=== PATIENT | female | born 1950 | race Two or more races ===

== ENCOUNTER 2022-10-08 15:02 | Inpatient (IN) | payer MEDICARE, OTHER ==
[~2022-10-08] VITALS: Ht 157.5 cm; Wt 102.9 kg
[2022-10-08] MEDS ORDERED: SODIUM CHLORIDE 0.9% 1,000 ML IVB ONE (15:15)
[2022-10-08 16:12] LABS: INR 1.22 (0.9-1.15); Partial Thromboplastin Time 38.9 sec (24.6-33.4)
[2022-10-08 16:15] LABS: Albumin 1.6 g/dL (3.4-5.0); Calcium 7.6 mg/dL (8.5-10.1); Magnesium 2.4 mg/dL (1.6-2.6); Potassium 5.3 mmol/L (3.5-5.1)
[2022-10-08 16:17] LABS: Bilirubin, Total 1.6 mg/dL (0.2-1.0); Lactic Acid w/Reflex 2.4 mmol/L (0.4-2.0)
[2022-10-08] MEDS ORDERED: InsuLIN REG 1unit/0.01ml Soln (100units/ml) IV ONE (17:30)
[2022-10-08] MEDS ORDERED: MORPHINE SULFATE INJ 2 MG/ml SYRG IV PRN (19:15)
[2022-10-08] MEDS ORDERED: INSULIN LANTUS (GLARGINE) 1 /0.01ml (100units/ml) SC ONE (19:15)
[2022-10-08] MEDS ORDERED: DEXTROSE (50%) 50ML SYRG IV PRN (19:15)
[2022-10-08] MEDS ORDERED: FUROSEMIDE 100 MG/10ML VIAL IV ONE (19:15)
[2022-10-08] MEDS ORDERED: NITROGLYCERIN 0.4 MG SL TAB SL PRN (19:15)
[2022-10-08] MEDS ORDERED: CEFEPIME 1GM/ 50ML 50 ML IV ONE ×2 (19:15→19:45)
[2022-10-08] MEDS ORDERED: VANCOMYCIN PER PHARMACY 0 MG IV SCH (19:15)
[2022-10-08] MEDS ORDERED: PANTOPRAZOLE 40 MG/10 ML VIAL INJ IV ONE (19:30)
[2022-10-08] MEDS: ACCU-CHEK COMFORT CURVE STRIP VI SCH ×3 (20:30→22:50)
[2022-10-08] MEDS: NOREPINEPHRINE 8 MG/250ML KIT 250 ML IV SCH (21:12)
[2022-10-08] MEDS: InsuLIN R (HUMAN) 100 UNITS in SODIUM CHL 0.9% 99 ML IV SCH (21:19)
[2022-10-08] MEDS ORDERED: hydrALAZINE HCL 20 MG/ML VL IV ONE (21:45)
[2022-10-08 22:04] LABS: Hemoglobin 7.7 g/dL (12.2-16.2); Mean Corpuscular Hemoglobin 30.6 pg (28.0-32.0); White Blood Cell 14.9 10^3/uL (4.4-10.8)
[2022-10-08 22:06] LABS: Hematocrit 24.5 % (36.0-46.0); Mean Corpuscular Hgb Conc. 31.4 g/dL (32.0-36.0); Mean Corpuscular Volume 97.5 fL (80.0-100.0); Red Blood Cells 2.52 10^6/uL (4.0-5.20)
[2022-10-08 22:08] LABS: Red Cell Distribution Width 24.4 % (11.8-14.3)
[2022-10-08 22:10] LABS: Basophils % (manual) 0 (0.0-2.0); Blast Cells 0; Eosinophils % (manual) 0 (0-7); Metamyelocytes % 0; Myelocytes % 0; Promyelocytes % 0; Reactive Lymphocytes 0
[2022-10-08 22:30] LABS: Band Neutrophils % (manual) 1; Lymphocytes % (manual) 20 (10.0-50.0); Monocytes % (manual) 6 (0-12)
[2022-10-08] MEDS ORDERED: VANCOMYCIN 1GM/250ML 250 ML IV ONE (23:00)
[2022-10-09] VITALS (87 sets, daily range): BP systolic 66–144; BP diastolic 24–72
[2022-10-09] MEDS: ACCU-CHEK COMFORT CURVE STRIP VI SCH ×16 (00:04→22:48)
[2022-10-09] MEDS: HEPARIN SODIUM (PORCINE) 5000 UNITS/ML 1ML VIAL SC SCH ×2 (00:14→11:13)
[2022-10-09 02:09] LABS: Urine Bacteria FEW /hpf (None Seen); Urine Blood 3+ /uL (Negative); Urine Mucus FEW (None Seen); Urine Specific Gravity 1.017 (1.001-1.035); Urine WBC 2436 /hpf (0 - 5); Urine WBC Clumps PRESENT /hpf (None Seen)
[2022-10-09 02:19] LABS: Alcohol, Urine < 3.0 mg/dL (0-10); Amphetamine Screen, Urine NEGATIVE (NEGATIVE); Barbiturate Scree,Urine NEGATIVE (NEGATIVE); Benzodiazephine Screen, Urine NEGATIVE (NEGATIVE); Cannabinoid Screen, Urine NEGATIVE (NEGATIVE); Cocaine Screen, Urine NEGATIVE (NEGATIVE); Opiate Scree,Urine NEGATIVE (NEGATIVE); Phencyclidine Screen, Urine NEGATIVE (NEGATIVE)
[2022-10-09 03:02] LABS: BUN/Creatinine Ratio 28.4 (10.0-20.0); Calcium 7.8 mg/dL (8.5-10.1); Potassium 4.2 mmol/L (3.5-5.1)
[2022-10-09] MEDS: NOREPINEPHRINE 8 MG/250ML KIT 250 ML IV SCH ×3 (04:12→16:37)
[2022-10-09] MEDS: FUROSEMIDE 40 MG/4 ML VIAL IV SCH ×2 (05:34→17:35)
[2022-10-09] MEDS ORDERED: SOD CHL 0.45% 1,000 ML IV SCH (08:30)
[2022-10-09 08:43] LABS: Albumin 1.6 g/dL (3.4-5.0); Calcium 7.9 mg/dL (8.5-10.1); Potassium 4.2 mmol/L (3.5-5.1)
[2022-10-09 08:46] LABS: BUN/Creatinine Ratio 26.8 (10.0-20.0); Bilirubin, Total 1.4 mg/dL (0.2-1.0); Total Protein 5.4 g/dL (6.4-8.2)
[2022-10-09] MEDS: VASOPRESSIN 20 UNITS in SODIUM CHL 0.9% 99 ML IV SCH ×2 (09:15→20:22)
[2022-10-09] MEDS ORDERED: PANTOPRAZOLE 40 MG/10 ML VIAL INJ IV SCH (10:00)
[2022-10-09] MEDS: CEFEPIME 1GM/ 50ML 50 ML IV SCH ×2 (10:31→12:52)
[2022-10-09] MEDS: LINEZOLID 600MG/300ML 300 ML IV SCH ×2 (10:44→21:41)
[2022-10-09] MEDS: INSULIN LANTUS (GLARGINE) 1 /0.01ml (100units/ml) SC SCH (10:49)
[2022-10-09 11:33] LABS: Protein, Urine 137.2 mg/dL (0.0-11.9)
[2022-10-09 14:40] LABS: BUN/Creatinine Ratio 27.2 (10.0-20.0); Calcium 7.9 mg/dL (8.5-10.1); Potassium 4.4 mmol/L (3.5-5.1)
[2022-10-09] MEDS: LACTULOSE 20Gm/30ML SOLN PO SCH ×2 (17:34→21:40)
[2022-10-09] MEDS: ACETAMINOPHEN 325 MG TAB PO PRN (17:34)
[2022-10-09] MEDS: PANTOPRAZOLE 40mg/50ML NS AE 50 ML IV SCH ×2 (17:36→21:41)
[2022-10-09] MEDS: InsuLIN R (HUMAN) 100 UNITS in SODIUM CHL 0.9% 99 ML IV SCH (19:15)
[2022-10-09 20:30] LABS: BUN/Creatinine Ratio 26.4 (10.0-20.0); Calcium 7.8 mg/dL (8.5-10.1); Potassium 4.3 mmol/L (3.5-5.1)
[2022-10-09] MEDS: BACITRACIN TOP OINT 1 UD PKG TOP SCH (21:41)
[2022-10-10] VITALS (47 sets, daily range): BP systolic 68–150; BP diastolic 35–85
[2022-10-10] MEDS: NOREPINEPHRINE 8 MG/250ML KIT 250 ML IV SCH ×4 (00:45→22:32)
[2022-10-10 00:53] LABS: Calcium 7.8 mg/dL (8.5-10.1); Potassium 4.1 mmol/L (3.5-5.1)
[2022-10-10] MEDS: ACCU-CHEK COMFORT CURVE STRIP VI SCH ×8 (01:37→23:50)
[2022-10-10] MEDS: LACTULOSE 20Gm/30ML SOLN PO SCH ×6 (02:06→21:53)
[2022-10-10] MEDS: ACETAMINOPHEN 325 MG TAB PO PRN ×2 (02:08→14:11)
[2022-10-10] MEDS: PANTOPRAZOLE 40mg/50ML NS AE 50 ML IV SCH ×5 (03:18→20:36)
[2022-10-10 04:04] LABS: Hematocrit 26.7 % (36.0-46.0); Hemoglobin 8.7 g/dL (12.2-16.2); Mean Corpuscular Hgb Conc. 32.6 g/dL (32.0-36.0); Mean Corpuscular Volume 95.1 fL (80.0-100.0); Red Blood Cells 2.81 10^6/uL (4.0-5.20); White Blood Cell 21.7 10^3/uL (4.4-10.8)
[2022-10-10 04:05] LABS: % Iron Saturation 44.1 % (15-50)
[2022-10-10 04:06] LABS: Albumin 1.5 g/dL (3.4-5.0); Calcium 7.8 mg/dL (8.5-10.1); Potassium 4.1 mmol/L (3.5-5.1); Uric Acid 12.3 mg/dL (2.6-6.0)
[2022-10-10 04:09] LABS: BUN/Creatinine Ratio 25.4 (10.0-20.0); Bilirubin, Total 1.2 mg/dL (0.2-1.0); Phosphorus 4.7 mg/dL (2.5-4.90)
[2022-10-10 04:16] LABS: Red Cell Distribution Width 24.5 % (11.8-14.3)
[2022-10-10 04:18] LABS: Basophils % (manual) 0 (0.0-2.0); Blast Cells 0; Eosinophils % (manual) 0 (0-7); Myelocytes % 0; Promyelocytes % 0; Reactive Lymphocytes 0
[2022-10-10 05:01] LABS: INR 1.33 (0.9-1.15); Partial Thromboplastin Time 41.3 sec (24.6-33.4)
[2022-10-10] MEDS: FUROSEMIDE 40 MG/4 ML VIAL IV SCH ×2 (06:26→17:48)
[2022-10-10] MEDS ORDERED: DEXTROSE (50%) 50ML SYRG IV PRN (07:00)
[2022-10-10 07:28] LABS: Band Neutrophils % (manual) 3; Lymphocytes % (manual) 26 (10.0-50.0); Metamyelocytes % 1; Monocytes % (manual) 2 (0-12)
[2022-10-10] MEDS: VASOPRESSIN 20 UNITS in SODIUM CHL 0.9% 99 ML IV SCH ×2 (07:29→18:30)
[2022-10-10] MEDS: LINEZOLID 600MG/300ML 300 ML IV SCH ×2 (09:48→21:53)
[2022-10-10] MEDS: BACITRACIN TOP OINT 1 UD PKG TOP SCH ×2 (09:49→21:54)
[2022-10-10] MEDS: HYDROCORTISONE SOD SUCC 100 MG/2ML INJ VIAL IV SCH ×2 (10:00→22:00)
[2022-10-10] MEDS: INSULIN LANTUS (GLARGINE) 1 /0.01ml (100units/ml) SC SCH (10:15)
[2022-10-10] MEDS ORDERED: SODIUM CHLORIDE 0.9% 2,000 ML IV ONE (11:00)
[2022-10-10] MEDS: InsuLIN REG 1unit/0.01ml Soln (100units/ml) SC SCH ×3 (12:18→23:57)
[2022-10-10 13:36] LABS: BUN/Creatinine Ratio 25.5 (10.0-20.0); Calcium 7.7 mg/dL (8.5-10.1)
[2022-10-10] MEDS: metroNIDAZOLE 500MG/100ML 100 ML IV SCH ×2 (14:45→21:53)
[2022-10-10] MEDS: CEFEPIME 1GM/ 50ML 50 ML IV SCH (15:41)
[2022-10-10] MEDS ORDERED: SODIUM BICARBONATE 8.4 % INJ 50ML VIAL IV ONE (16:30)
[2022-10-10 18:42] LABS: BUN/Creatinine Ratio 23.6 (10.0-20.0); Calcium 7.5 mg/dL (8.5-10.1); Potassium 3.4 mmol/L (3.5-5.1)
[2022-10-10] MEDS: POTASSIUM CHL 20MEQ/100ML 100 ML IV SCH ×2 (20:19→21:52)
[2022-10-11] VITALS (88 sets, daily range): BP systolic 79–126; BP diastolic 45–73
[2022-10-11] MEDS: LACTULOSE 20Gm/30ML SOLN PO SCH ×2 (01:31→05:43)
[2022-10-11] MEDS: PANTOPRAZOLE 40mg/50ML NS AE 50 ML IV SCH ×4 (03:14→20:01)
[2022-10-11 04:51] LABS: BUN/Creatinine Ratio 23.8 (10.0-20.0); Calcium 7.4 mg/dL (8.5-10.1)
[2022-10-11] MEDS: VASOPRESSIN 20 UNITS in SODIUM CHL 0.9% 99 ML IV SCH ×2 (05:43→16:50)
[2022-10-11] MEDS: ACCU-CHEK COMFORT CURVE STRIP VI SCH ×4 (05:48→23:53)
[2022-10-11] MEDS: InsuLIN REG 1unit/0.01ml Soln (100units/ml) SC SCH ×4 (05:49→23:54)
[2022-10-11] MEDS: metroNIDAZOLE 500MG/100ML 100 ML IV SCH ×3 (05:51→21:45)
[2022-10-11] MEDS: FUROSEMIDE 40 MG/4 ML VIAL IV SCH ×2 (05:52→17:11)
[2022-10-11] MEDS ORDERED: SODIUM BICARBONATE 50ML VIAL 150 ML in D5W 5% 1,000 ML IV ONE (09:00)
[2022-10-11 09:16] LABS: Hematocrit 22.3 % (36.0-46.0); Hemoglobin 7.3 g/dL (12.2-16.2); Mean Corpuscular Hgb Conc. 32.8 g/dL (32.0-36.0)
[2022-10-11 09:19] LABS: Mean Corpuscular Hemoglobin 31.7 pg (28.0-32.0); Mean Corpuscular Volume 96.8 fL (80.0-100.0); White Blood Cell 10.4 10^3/uL (4.4-10.8)
[2022-10-11 09:31] LABS: Red Cell Distribution Width 24.7 % (11.8-14.3)
[2022-10-11 09:40] LABS: Basophils % (manual) 0 (0.0-2.0); Blast Cells 0; Eosinophils % (manual) 0 (0-7); Metamyelocytes % 0; Monocytes % (manual) 0 (0-12); Myelocytes % 0; Promyelocytes % 0; Reactive Lymphocytes 0
[2022-10-11] MEDS: HYDROCORTISONE SOD SUCC 100 MG/2ML INJ VIAL IV SCH ×2 (10:00→22:47)
[2022-10-11] MEDS: BACITRACIN TOP OINT 1 UD PKG TOP SCH ×2 (10:11→21:46)
[2022-10-11] MEDS: CEFEPIME 1GM/ 50ML 50 ML IV SCH (10:11)
[2022-10-11] MEDS: LINEZOLID 600MG/300ML 300 ML IV SCH ×2 (10:12→21:47)
[2022-10-11 12:45] LABS: Band Neutrophils % (manual) 2; Lymphocytes % (manual) 15 (10.0-50.0)
[2022-10-11] MEDS: NOREPINEPHRINE 8 MG/250ML KIT 250 ML IV SCH ×2 (14:43→16:40)
[2022-10-11 19:55] LABS: Hepatitis A Ab IgM Negative; Hepatitis B Core IgM Negative; Hepatitis C Antibody Negative (Negative)
[2022-10-12] VITALS (101 sets, daily range): BP systolic 80–132; BP diastolic 5–69
[2022-10-12] MEDS: NOREPINEPHRINE 8 MG/250ML KIT 250 ML IV SCH ×2 (02:03→11:35)
[2022-10-12] MEDS: PANTOPRAZOLE 40mg/50ML NS AE 50 ML IV SCH ×6 (03:26→23:49)
[2022-10-12] MEDS: VASOPRESSIN 20 UNITS in SODIUM CHL 0.9% 99 ML IV SCH ×2 (03:57→15:04)
[2022-10-12 04:30] LABS: Hematocrit 18.7 % (36.0-46.0); Mean Corpuscular Hemoglobin 32.2 pg (28.0-32.0); Mean Corpuscular Hgb Conc. 33.7 g/dL (32.0-36.0); Mean Corpuscular Volume 95.6 fL (80.0-100.0); Red Blood Cells 1.96 10^6/uL (4.0-5.20); White Blood Cell 9.7 10^3/uL (4.4-10.8)
[2022-10-12 04:44] LABS: Calcium 7.2 mg/dL (8.5-10.1); Potassium 3.7 mmol/L (3.5-5.1)
[2022-10-12 04:48] LABS: Red Cell Distribution Width 25.3 % (11.8-14.3)
[2022-10-12 04:49] LABS: Albumin 1.3 g/dL (3.4-5.0); BUN/Creatinine Ratio 23.5 (10.0-20.0); Bilirubin, Total 1.1 mg/dL (0.2-1.0); Hemoglobin 6.3 g/dL (12.2-16.2); Total Protein 3.8 g/dL (6.4-8.2)
[2022-10-12 04:51] LABS: Basophils % (manual) 0 (0.0-2.0); Blast Cells 0; Eosinophils % (manual) 0 (0-7); Metamyelocytes % 0; Myelocytes % 0; Promyelocytes % 0; Reactive Lymphocytes 0
[2022-10-12 05:07] LABS: RPR Non Reactive (Non Reactive)
[2022-10-12] MEDS: FUROSEMIDE 40 MG/4 ML VIAL IV SCH (05:24)
[2022-10-12] MEDS: metroNIDAZOLE 500MG/100ML 100 ML IV SCH ×3 (05:25→22:36)
[2022-10-12] MEDS: ACCU-CHEK COMFORT CURVE STRIP VI SCH ×4 (05:32→23:14)
[2022-10-12] MEDS: InsuLIN REG 1unit/0.01ml Soln (100units/ml) SC SCH ×4 (05:33→23:14)
[2022-10-12 07:06] LABS: Immunoglobulin G, Serum 1413 mg/dL (586-1602)
[2022-10-12 08:02] LABS: Band Neutrophils % (manual) 1; Lymphocytes % (manual) 16 (10.0-50.0); Monocytes % (manual) 2 (0-12)
[2022-10-12] MEDS: LINEZOLID 600MG/300ML 300 ML IV SCH ×2 (10:25→23:15)
[2022-10-12] MEDS: BACITRACIN TOP OINT 1 UD PKG TOP SCH ×2 (10:31→22:36)
[2022-10-12] MEDS: CEFEPIME 1GM/ 50ML 50 ML IV SCH (11:31)
[2022-10-12] MEDS: BUMETANIDE INJECTION 25 MG in GIVE UN-DILUTED 0 ML IV SCH (14:48)
[2022-10-12 20:31] LABS: White Blood Cell 6.6 10^3/uL (4.4-10.8)
[2022-10-12 20:32] LABS: Hematocrit 23.6 % (36.0-46.0); Hemoglobin 8.3 g/dL (12.2-16.2); Mean Corpuscular Hemoglobin 30.6 pg (28.0-32.0); Mean Corpuscular Volume 87.6 fL (80.0-100.0); Red Cell Distribution Width 16.1 % (11.8-14.3)
[2022-10-12 20:36] LABS: Band Neutrophils % (manual) 0; Basophils % (manual) 0 (0.0-2.0); Blast Cells 0; Eosinophils % (manual) 0 (0-7); Metamyelocytes % 0; Myelocytes % 0; Promyelocytes % 0; Reactive Lymphocytes 0
[2022-10-12 21:56] LABS: Lymphocytes % (manual) 23 (10.0-50.0); Monocytes % (manual) 5 (0-12)
[2022-10-13] VITALS (94 sets, daily range): BP systolic 80–121; BP diastolic 43–71
[2022-10-13] MEDS: VASOPRESSIN 20 UNITS in SODIUM CHL 0.9% 99 ML IV SCH ×2 (02:11→12:08)
[2022-10-13] MEDS: NOREPINEPHRINE 8 MG/250ML KIT 250 ML IV SCH ×2 (03:13→15:13)
[2022-10-13 04:54] LABS: Hematocrit 26.1 % (36.0-46.0); Hemoglobin 9.1 g/dL (12.2-16.2); Mean Corpuscular Hemoglobin 30.7 pg (28.0-32.0); Mean Corpuscular Hgb Conc. 34.7 g/dL (32.0-36.0); Mean Corpuscular Volume 88.4 fL (80.0-100.0); Red Blood Cells 2.95 10^6/uL (4.0-5.20); Red Cell Distribution Width 16.1 % (11.8-14.3); White Blood Cell 7.3 10^3/uL (4.4-10.8)
[2022-10-13 04:55] LABS: Basophils % (manual) 0 (0.0-2.0); Blast Cells 0; Eosinophils % (manual) 0 (0-7); Metamyelocytes % 0; Myelocytes % 0; Promyelocytes % 0; Reactive Lymphocytes 0
[2022-10-13 05:11] LABS: BUN/Creatinine Ratio 21.1 (10.0-20.0); Calcium 7.6 mg/dL (8.5-10.1); Potassium 3.7 mmol/L (3.5-5.1)
[2022-10-13] MEDS: PANTOPRAZOLE 40mg/50ML NS AE 50 ML IV SCH (05:16)
[2022-10-13] MEDS: ACCU-CHEK COMFORT CURVE STRIP VI SCH ×3 (05:42→18:26)
[2022-10-13] MEDS: metroNIDAZOLE 500MG/100ML 100 ML IV SCH ×3 (05:42→21:50)
[2022-10-13] MEDS: InsuLIN REG 1unit/0.01ml Soln (100units/ml) SC SCH ×3 (05:51→18:27)
[2022-10-13] MEDS ORDERED: TPN PER PHARMACY 0 ML IV SCH (07:00)
[2022-10-13 07:27] LABS: Band Neutrophils % (manual) 1; Lymphocytes % (manual) 20 (10.0-50.0); Monocytes % (manual) 3 (0-12)
[2022-10-13 07:52] LABS: Albumin 1.9 g/dL (3.4-5.0); Magnesium 1.7 mg/dL (1.6-2.6)
[2022-10-13 07:59] LABS: Bilirubin, Direct 1.3 mg/dL (0-0.2); Bilirubin, Total 1.8 mg/dL (0.2-1.0); Phosphorus 4.6 mg/dL (2.5-4.90); Total Protein 4.6 g/dL (6.4-8.2)
[2022-10-13] MEDS: BACITRACIN TOP OINT 1 UD PKG TOP SCH ×2 (10:47→21:50)
[2022-10-13] MEDS: CEFEPIME 1GM/ 50ML 50 ML IV SCH (10:47)
[2022-10-13] MEDS: BUMETANIDE INJECTION 25 MG in GIVE UN-DILUTED 0 ML IV SCH (12:05)
[2022-10-13] MEDS ORDERED: MORPHINE SULFATE INJ 2 MG/ml SYRG IV PRN (13:45)
[2022-10-13] MEDS ORDERED: MORPHINE SULFATE INJ 2 MG/ml SYRG IV ONE (13:45)
[2022-10-13] MEDS ORDERED: SULFAMETH-TRIMETH 80/16MG-ML 20 ML in D5W 5% 500 ML IV SCH (17:00)
[2022-10-13] MEDS ORDERED: TPN PER PHARMACY IV NR ×9 (20:00)
[2022-10-14] VITALS (92 sets, daily range): BP systolic 87–133; BP diastolic 47–69
[2022-10-14] MEDS: ACCU-CHEK COMFORT CURVE STRIP VI SCH ×5 (00:08→23:57)
[2022-10-14] MEDS: InsuLIN REG 1unit/0.01ml Soln (100units/ml) SC SCH ×4 (00:09→17:46)
[2022-10-14] MEDS: VASOPRESSIN 20 UNITS in SODIUM CHL 0.9% 99 ML IV SCH ×3 (00:25→22:39)
[2022-10-14] MEDS: NOREPINEPHRINE 8 MG/250ML KIT 250 ML IV SCH ×2 (03:24→18:13)
[2022-10-14] MEDS: metroNIDAZOLE 500MG/100ML 100 ML IV SCH ×3 (06:15→22:18)
[2022-10-14] MEDS ORDERED: SODIUM CHL 0.9% 1000 ML BAG XX ONE (07:00)
[2022-10-14 08:32] LABS: Hemoglobin 8.8 g/dL (12.2-16.2); White Blood Cell 4.3 10^3/uL (4.4-10.8)
[2022-10-14 08:34] LABS: Hematocrit 25.3 % (36.0-46.0); Mean Corpuscular Hemoglobin 30.6 pg (28.0-32.0); Mean Corpuscular Hgb Conc. 34.8 g/dL (32.0-36.0); Mean Corpuscular Volume 88.1 fL (80.0-100.0); Red Blood Cells 2.88 10^6/uL (4.0-5.20)
[2022-10-14 08:37] LABS: Basophils % (manual) 0 (0.0-2.0); Blast Cells 0; Eosinophils % (manual) 0 (0-7); Metamyelocytes % 0; Myelocytes % 0; Promyelocytes % 0; Reactive Lymphocytes 0
[2022-10-14] MEDS ORDERED: ALBUMIN 25% 100 ML IV ONE (08:45)
[2022-10-14 08:50] LABS: INR 1.71 (0.9-1.15); Partial Thromboplastin Time 52.8 sec (24.6-33.4)
[2022-10-14 08:53] LABS: Band Neutrophils % (manual) 3; Lymphocytes % (manual) 25 (10.0-50.0); Monocytes % (manual) 3 (0-12)
[2022-10-14 08:55] LABS: Albumin 1.2 g/dL (3.4-5.0); Anion Gap 13 (5-15); Blood Urea Nitrogen 73 mg/dL (7-18); Calcium 7.3 mg/dL (8.5-10.1); Carbon Dioxide 17 mmol/L (21-32); Chloride 105 mmol/L (98-107); Glucose 206 mg/dL (74-106); Magnesium 1.8 mg/dL (1.6-2.6); Sodium 135 mmol/L (136-145)
[2022-10-14 08:58] LABS: Alanine Aminotransferase 42 U/L (13-56); Alkaline Phosphatase 242 U/L (45-117); Aspartate Aminotransferase 31 U/L (15-37); BUN/Creatinine Ratio 20.3 (10.0-20.0); Bilirubin, Total 1.5 mg/dL (0.2-1.0); GFR African American 16 mL/min; GFR Non-African American 13 mL/min; Phosphorus 3.1 mg/dL (2.5-4.90); Total Protein 3.9 g/dL (6.4-8.2)
[2022-10-14] MEDS: POTASSIUM EFFERVESENT TAB 25 MEQ PO ONE ×2 (10:00→10:39)
[2022-10-14] MEDS: BACITRACIN TOP OINT 1 UD PKG TOP SCH ×2 (10:39→22:18)
[2022-10-14] MEDS: CEFEPIME 1GM/ 50ML 50 ML IV SCH (10:39)
[2022-10-14] MEDS: POTASSIUM CHL 20MEQ/100ML 100 ML IV SCH ×2 (10:48→11:56)
[2022-10-14] MEDS: BUMETANIDE INJECTION 25 MG in GIVE UN-DILUTED 0 ML IV SCH (14:15)
[2022-10-14] MEDS ORDERED: Nepro With Carb Steady 1 Liter Bottle GT SCH (15:00)
[2022-10-14 18:03] LABS: BUN/Creatinine Ratio 19.2 (10.0-20.0); Calcium 7.8 mg/dL (8.5-10.1); Potassium 3.9 mmol/L (3.5-5.1)
[2022-10-14] MEDS: TPN PER PHARMACY IV NR ×11 (19:43)
[2022-10-14] MEDS ORDERED: EPOETIN ALFA-EPBX 4,000 UNIT/ML VIAL SC ONE (21:00)
[2022-10-15] VITALS (82 sets, daily range): BP systolic 69–137; BP diastolic 46–72
[2022-10-15] MEDS: InsuLIN REG 1unit/0.01ml Soln (100units/ml) SC SCH ×4 (00:01→18:10)
[2022-10-15 04:13] LABS: Hemoglobin 8.9 g/dL (12.2-16.2)
[2022-10-15 04:16] LABS: Hematocrit 25.4 % (36.0-46.0); Mean Corpuscular Volume 88.6 fL (80.0-100.0); Red Blood Cells 2.86 10^6/uL (4.0-5.20); Red Cell Distribution Width 16.9 % (11.8-14.3); White Blood Cell 4.9 10^3/uL (4.4-10.8)
[2022-10-15 04:32] LABS: Calcium 7.7 mg/dL (8.5-10.1); Potassium 3.8 mmol/L (3.5-5.1)
[2022-10-15 04:34] LABS: Basophils % (manual) 0 (0.0-2.0); Blast Cells 0; Eosinophils % (manual) 0 (0-7); Metamyelocytes % 0; Promyelocytes % 0; Reactive Lymphocytes 0
[2022-10-15 04:39] LABS: Albumin 1.9 g/dL (3.4-5.0); Magnesium 1.7 mg/dL (1.6-2.6); Phosphorus 2.5 mg/dL (2.5-4.90); Total Protein 4.3 g/dL (6.4-8.2)
[2022-10-15] MEDS: metroNIDAZOLE 500MG/100ML 100 ML IV SCH ×3 (06:33→22:29)
[2022-10-15] MEDS: ACCU-CHEK COMFORT CURVE STRIP VI SCH ×3 (06:33→18:01)
[2022-10-15 08:17] LABS: Band Neutrophils % (manual) 1; Lymphocytes % (manual) 30 (10.0-50.0); Monocytes % (manual) 3 (0-12); Myelocytes % 2
[2022-10-15] MEDS: VASOPRESSIN 20 UNITS in SODIUM CHL 0.9% 99 ML IV SCH (09:43)
[2022-10-15] MEDS: CEFEPIME 1GM/ 50ML 50 ML IV SCH (09:44)
[2022-10-15] MEDS: BACITRACIN TOP OINT 1 UD PKG TOP SCH ×2 (09:44→22:30)
[2022-10-15] MEDS ORDERED: D5W 5% IV ONE (10:00)
[2022-10-15] MEDS ORDERED: TIGECYCLINE IV ONE (10:00)
[2022-10-15] MEDS: BUMETANIDE INJECTION 25 MG in GIVE UN-DILUTED 0 ML IV SCH (14:24)
[2022-10-15] MEDS ORDERED: MICAFUNGIN SODIUM 100 MG in SODIUM CHL 0.9% 100 ML IV ONE (16:45)
[2022-10-15] MEDS ORDERED: METOCLOPRAMIDE HCL 5MG/ml INJ 2ml VIAL IV ONE (16:45)
[2022-10-15] MEDS ORDERED: PANTOPRAZOLE 40 MG/10 ML VIAL INJ IV ONE (16:45)
[2022-10-15] MEDS: TPN PER PHARMACY IV NR ×11 (19:45)
[2022-10-15] MEDS ORDERED: TPN PER PHARMACY IV NR ×10 (20:00)
[2022-10-15] MEDS: TIGECYCLINE IV SCH (22:29)
[2022-10-15] MEDS: METOCLOPRAMIDE HCL 5MG/ml INJ 2ml VIAL IV SCH (22:29)
[2022-10-15] MEDS: NOREPINEPHRINE 8 MG/250ML KIT 250 ML IV SCH (22:29)
[2022-10-15] MEDS: D5W 5% IV SCH (22:29)
[2022-10-16] VITALS (90 sets, daily range): BP systolic 82–129; BP diastolic 37–72
[2022-10-16] MEDS: ACCU-CHEK COMFORT CURVE STRIP VI SCH ×4 (00:20→18:17)
[2022-10-16] MEDS: InsuLIN REG 1unit/0.01ml Soln (100units/ml) SC SCH ×4 (00:39→18:23)
[2022-10-16 03:26] LABS: Albumin 1.5 g/dL (3.4-5.0); Calcium 7.8 mg/dL (8.5-10.1); Magnesium 1.9 mg/dL (1.6-2.6)
[2022-10-16 03:30] LABS: BUN/Creatinine Ratio 22.2 (10.0-20.0); Bilirubin, Total 1.6 mg/dL (0.2-1.0); Phosphorus 2.6 mg/dL (2.5-4.90); Total Protein 4.3 g/dL (6.4-8.2)
[2022-10-16 03:45] LABS: Hematocrit 27.5 % (36.0-46.0); Hemoglobin 9.6 g/dL (12.2-16.2); White Blood Cell 7.3 10^3/uL (4.4-10.8)
[2022-10-16 03:48] LABS: Mean Corpuscular Hemoglobin 31.4 pg (28.0-32.0); Mean Corpuscular Hgb Conc. 34.9 g/dL (32.0-36.0); Mean Corpuscular Volume 89.9 fL (80.0-100.0); Red Blood Cells 3.05 10^6/uL (4.0-5.20); Red Cell Distribution Width 16.9 % (11.8-14.3)
[2022-10-16 04:57] LABS: Basophils % (manual) 0 (0.0-2.0); Blast Cells 0; Eosinophils % (manual) 0 (0-7); Metamyelocytes % 0; Myelocytes % 0; Promyelocytes % 0; Reactive Lymphocytes 0
[2022-10-16] MEDS: METOCLOPRAMIDE HCL 5MG/ml INJ 2ml VIAL IV SCH ×3 (05:50→22:19)
[2022-10-16] MEDS: metroNIDAZOLE 500MG/100ML 100 ML IV SCH ×3 (05:50→22:19)
[2022-10-16] MEDS: VASOPRESSIN 20 UNITS in SODIUM CHL 0.9% 99 ML IV SCH ×3 (08:00→19:07)
[2022-10-16 08:13] LABS: Band Neutrophils % (manual) 15; Lymphocytes % (manual) 20 (10.0-50.0); Monocytes % (manual) 2 (0-12)
[2022-10-16] MEDS: BACITRACIN TOP OINT 1 UD PKG TOP SCH ×2 (08:31→22:00)
[2022-10-16] MEDS: MICAFUNGIN SODIUM 100 MG in SODIUM CHL 0.9% 100 ML IV SCH (08:31)
[2022-10-16] MEDS ORDERED: PANTOPRAZOLE 40 MG/10 ML VIAL INJ IV SCH (10:00)
[2022-10-16] MEDS: BUMETANIDE INJECTION 25 MG in GIVE UN-DILUTED 0 ML IV SCH (10:34)
[2022-10-16] MEDS: TIGECYCLINE IV SCH ×2 (11:40→22:23)
[2022-10-16] MEDS: D5W 5% IV SCH ×2 (11:40→22:23)
[2022-10-16] MEDS ORDERED: ALBUMIN 25% 100 ML IV ONE (12:45)
[2022-10-16] MEDS: NOREPINEPHRINE 8 MG/250ML KIT 250 ML IV SCH (19:15)
[2022-10-16] MEDS ORDERED: methylPREDNISolone SOD SUCC 125 MG/2 ML VL IV ONE (20:00)
[2022-10-16] MEDS ORDERED: TPN PER PHARMACY IV NR ×9 (20:00)
[2022-10-17] VITALS (88 sets, daily range): BP systolic 84–151; BP diastolic 47–80
[2022-10-17] MEDS: ACCU-CHEK COMFORT CURVE STRIP VI SCH ×4 (00:24→18:11)
[2022-10-17] MEDS: InsuLIN REG 1unit/0.01ml Soln (100units/ml) SC SCH ×4 (00:27→18:13)
[2022-10-17 04:15] LABS: INR 2.32 (0.9-1.15); Partial Thromboplastin Time 62.9 SEC (24.5-34.5); Potassium 4.5 mmol/L (3.5-5.1)
[2022-10-17 04:21] LABS: Basophils # (auto) 0 10 ^3/uL (0-0.2); Eosinophils # (auto) 0 10 ^3/uL (0-0.8); Lymphocytes # (auto) 0.8 10 ^3/uL (0.4-5.4); Monocytes # (auto) 0 10 ^3/uL (0-1.3); Monocytes % (auto) 0.4 % (0.0-12.0)
[2022-10-17 04:22] LABS: Albumin 2.2 g/dL (3.4-5.0); Basophils % (auto) 0.5 % (0.0-2.0); Bilirubin, Total 2.4 mg/dL (0.2-1.0); Calcium 7.7 mg/dL (8.5-10.1); Eosinophils % (auto) 0.1 % (0.0-7.0); Hematocrit 23.5 % (36.0-46.0); Hemoglobin 8.3 g/dL (12.2-16.2); Lymphocytes % (auto) 11.6 % (10.0-50.0); Magnesium 2.2 mg/dL (1.6-2.6); Mean Corpuscular Hemoglobin 31.3 pg (28.0-32.0); Mean Corpuscular Hgb Conc. 35.2 g/dL (32.0-36.0); Mean Corpuscular Volume 89.1 fL (80.0-100.0); Neutrophils # (auto) 6.3 10 ^3/uL (1.6-8.6); Neutrophils % (auto) 87.4 % (37.0-80.0); Nucleated Red Blood Cells % 0.5 %; Phosphorus 4.1 mg/dL (2.5-4.90); Red Blood Cells 2.63 10^6/uL (4.0-5.20); Red Cell Distribution Width 17.4 % (11.8-14.3); Total Protein 4.3 g/dL (6.4-8.2); White Blood Cell 7.2 10^3/uL (4.4-10.8)
[2022-10-17] MEDS: VASOPRESSIN 20 UNITS in SODIUM CHL 0.9% 99 ML IV SCH ×2 (06:14→17:21)
[2022-10-17] MEDS: metroNIDAZOLE 500MG/100ML 100 ML IV SCH ×3 (06:26→22:43)
[2022-10-17] MEDS: METOCLOPRAMIDE HCL 5MG/ml INJ 2ml VIAL IV SCH ×3 (06:26→22:44)
[2022-10-17] MEDS ORDERED: SODIUM CHL 0.9% 1000 ML BAG XX ONE (07:00)
[2022-10-17] MEDS ORDERED: ALBUMIN 25% 100 ML IV ONE ×2 (08:15)
[2022-10-17] MEDS: MICAFUNGIN SODIUM 100 MG in SODIUM CHL 0.9% 100 ML IV SCH (10:48)
[2022-10-17] MEDS: TIGECYCLINE IV SCH ×2 (10:48→22:45)
[2022-10-17] MEDS: D5W 5% IV SCH ×2 (10:48→22:45)
[2022-10-17] MEDS: BACITRACIN TOP OINT 1 UD PKG TOP SCH ×2 (10:50→22:00)
[2022-10-17] MEDS: NOREPINEPHRINE 8 MG/250ML KIT 250 ML IV SCH (11:21)
[2022-10-17] MEDS: FAMOTIDINE INJECTION 40 MG in SODIUM CHL 0.9% 100 ML IV SCH (11:21)
[2022-10-17] MEDS: BUMETANIDE INJECTION 25 MG in GIVE UN-DILUTED 0 ML IV SCH (14:00)
[2022-10-17] MEDS: methylPREDNISolone SOD SUCC 40 MG/ML VL IV SCH ×2 (14:18→22:44)
[2022-10-17] MEDS ORDERED: TPN PER PHARMACY IV NR ×10 (20:00)
[2022-10-17] MEDS ORDERED: EPOETIN ALFA-EPBX 4,000 UNIT/ML VIAL SC ONE (21:00)
[2022-10-18] VITALS (92 sets, daily range): BP systolic 84–136; BP diastolic 40–67
[2022-10-18 04:01] LABS: Potassium 4.2 mmol/L (3.5-5.1)
[2022-10-18 04:09] LABS: Albumin 2.8 g/dL (3.4-5.0); BUN/Creatinine Ratio 26.4 (10.0-20.0); Bilirubin, Total 3.8 mg/dL (0.2-1.0); Calcium 8.3 mg/dL (8.5-10.1); Magnesium 2.5 mg/dL (1.6-2.6); Phosphorus 4.4 mg/dL (2.5-4.90); Total Protein 4.1 g/dL (6.4-8.2)
[2022-10-18] MEDS: VASOPRESSIN 20 UNITS in SODIUM CHL 0.9% 99 ML IV SCH (04:28)
[2022-10-18] MEDS: metroNIDAZOLE 500MG/100ML 100 ML IV SCH ×3 (06:10→22:47)
[2022-10-18] MEDS: METOCLOPRAMIDE HCL 5MG/ml INJ 2ml VIAL IV SCH ×3 (06:11→22:47)
[2022-10-18] MEDS: ACCU-CHEK COMFORT CURVE STRIP VI SCH ×4 (06:11→17:41)
[2022-10-18] MEDS: methylPREDNISolone SOD SUCC 40 MG/ML VL IV SCH ×2 (06:14→14:11)
[2022-10-18] MEDS: InsuLIN REG 1unit/0.01ml Soln (100units/ml) SC SCH ×4 (06:27→18:00)
[2022-10-18 06:43] LABS: Basophils # (auto) 0 10 ^3/uL (0-0.2); Basophils % (auto) 0.2 % (0.0-2.0); Eosinophils # (auto) 0 10 ^3/uL (0-0.8); Hematocrit 17.7 % (36.0-46.0); Mean Corpuscular Hemoglobin 30.9 pg (28.0-32.0); Red Blood Cells 1.98 10^6/uL (4.0-5.20); White Blood Cell 7.7 10^3/uL (4.4-10.8)
[2022-10-18 06:45] LABS: Lymphocytes # (auto) 1.1 10 ^3/uL (0.4-5.4); Lymphocytes % (auto) 14.8 % (10.0-50.0); Mean Corpuscular Hgb Conc. 34.6 g/dL (32.0-36.0); Mean Corpuscular Volume 89.3 fL (80.0-100.0); Monocytes # (auto) 0 10 ^3/uL (0-1.3); Monocytes % (auto) 0.6 % (0.0-12.0); Neutrophils # (auto) 6.5 10 ^3/uL (1.6-8.6); Neutrophils % (auto) 84.4 % (37.0-80.0); Nucleated Red Blood Cells % 1.1 %; Red Cell Distribution Width 17.2 % (11.8-14.3)
[2022-10-18 06:59] LABS: Hemoglobin 6.1 g/dL (12.2-16.2)
[2022-10-18] MEDS: TIGECYCLINE IV SCH (09:38)
[2022-10-18] MEDS: D5W 5% IV SCH (09:38)
[2022-10-18] MEDS: MICAFUNGIN SODIUM 100 MG in SODIUM CHL 0.9% 100 ML IV SCH (09:38)
[2022-10-18] MEDS: BACITRACIN TOP OINT 1 UD PKG TOP SCH ×2 (09:38→22:47)
[2022-10-18] MEDS: BUMETANIDE INJECTION 25 MG in GIVE UN-DILUTED 0 ML IV SCH (14:01)
[2022-10-18] MEDS: VORICONAZOLE INJ 400 MG in D5W 5% 250 ML IV SCH (16:59)
[2022-10-18] MEDS: DexAMETHasone SOD PHOS 4 MG/1ML SDV INJ IV SCH (17:40)
[2022-10-18] MEDS: NOREPINEPHRINE 8 MG/250ML KIT 250 ML IV SCH (19:15)
[2022-10-18] MEDS: TPN PER PHARMACY IV NR ×9 (20:12)
[2022-10-18] MEDS ORDERED: methylPREDNISolone SOD SUCC 40 MG/ML VL IV SCH (22:00)
[2022-10-19] VITALS (92 sets, daily range): BP systolic 92–142; BP diastolic 47–77
[2022-10-19] MEDS: TIGECYCLINE IV SCH ×3 (00:05→23:23)
[2022-10-19] MEDS: D5W 5% IV SCH ×3 (00:05→23:23)
[2022-10-19] MEDS: ACCU-CHEK COMFORT CURVE STRIP VI SCH ×5 (00:22→23:27)
[2022-10-19] MEDS: InsuLIN REG 1unit/0.01ml Soln (100units/ml) SC SCH ×5 (00:23→23:27)
[2022-10-19] MEDS: BUMETANIDE INJECTION 25 MG in GIVE UN-DILUTED 0 ML IV SCH ×2 (02:27→23:59)
[2022-10-19] MEDS: VORICONAZOLE INJ 400 MG in D5W 5% 250 ML IV SCH (02:40)
[2022-10-19 04:50] LABS: Basophils # (auto) 0 10 ^3/uL (0-0.2); Eosinophils # (auto) 0 10 ^3/uL (0-0.8); Hematocrit 24.7 % (36.0-46.0); Hemoglobin 8.5 g/dL (12.2-16.2); Mean Corpuscular Hemoglobin 31.3 pg (28.0-32.0); Monocytes # (auto) 0.1 10 ^3/uL (0-1.3)
[2022-10-19 04:53] LABS: Basophils % (auto) 0.2 % (0.0-2.0); Lymphocytes # (auto) 1.6 10 ^3/uL (0.4-5.4); Lymphocytes % (auto) 16.6 % (10.0-50.0); Mean Corpuscular Hgb Conc. 34.5 g/dL (32.0-36.0); Mean Corpuscular Volume 90.7 fL (80.0-100.0); Monocytes % (auto) 0.9 % (0.0-12.0); Neutrophils # (auto) 7.9 10 ^3/uL (1.6-8.6); Neutrophils % (auto) 82.3 % (37.0-80.0); Nucleated Red Blood Cells % 0.9 %; Red Blood Cells 2.72 10^6/uL (4.0-5.20); Red Cell Distribution Width 15.8 % (11.8-14.3); White Blood Cell 9.6 10^3/uL (4.4-10.8)
[2022-10-19 04:56] LABS: Albumin 2.5 g/dL (3.4-5.0); Calcium 8.3 mg/dL (8.5-10.1); Magnesium 2.6 mg/dL (1.6-2.6); Potassium 4.1 mmol/L (3.5-5.1)
[2022-10-19 04:57] LABS: INR 2.2 (0.9-1.15); Partial Thromboplastin Time 51.4 SEC (24.5-34.5)
[2022-10-19 04:59] LABS: BUN/Creatinine Ratio 30.8 (10.0-20.0); Bilirubin, Total 4.5 mg/dL (0.2-1.0); Phosphorus 5.4 mg/dL (2.5-4.90); Total Protein 4.2 g/dL (6.4-8.2)
[2022-10-19] MEDS: METOCLOPRAMIDE HCL 5MG/ml INJ 2ml VIAL IV SCH ×3 (05:41→21:16)
[2022-10-19] MEDS: metroNIDAZOLE 500MG/100ML 100 ML IV SCH ×3 (05:41→21:15)
[2022-10-19] MEDS: DexAMETHasone SOD PHOS 4 MG/1ML SDV INJ IV SCH (09:39)
[2022-10-19] MEDS: BACITRACIN TOP OINT 1 UD PKG TOP SCH ×2 (09:39→21:16)
[2022-10-19] MEDS: FAMOTIDINE INJECTION 40 MG in SODIUM CHL 0.9% 100 ML IV SCH (11:52)
[2022-10-19] MEDS: VORICONAZOLE INJ 200 MG in D5W 5% 250 ML IV SCH (17:23)
[2022-10-19] MEDS: NOREPINEPHRINE 8 MG/250ML KIT 250 ML IV SCH (19:15)
[2022-10-19] MEDS: TPN PER PHARMACY IV NR ×9 (19:59)
[2022-10-19] MEDS ORDERED: TPN PER PHARMACY IV NR ×10 (20:00)
[2022-10-20] VITALS (54 sets, daily range): BP systolic 61–140; BP diastolic 21–85
[2022-10-20] MEDS: VORICONAZOLE INJ 200 MG in D5W 5% 250 ML IV SCH (02:35)
[2022-10-20 04:19] LABS: Basophils # (auto) 0 10 ^3/uL (0-0.2); Basophils % (auto) 0.1 % (0.0-2.0); Eosinophils # (auto) 0 10 ^3/uL (0-0.8); Red Blood Cells 2.76 10^6/uL (4.0-5.20)
[2022-10-20 04:23] LABS: Hematocrit 25.3 % (36.0-46.0); Hemoglobin 8.6 g/dL (12.2-16.2); Lymphocytes # (auto) 2.7 10 ^3/uL (0.4-5.4); Lymphocytes % (auto) 23.9 % (10.0-50.0); Mean Corpuscular Hgb Conc. 33.8 g/dL (32.0-36.0); Mean Corpuscular Volume 91.8 fL (80.0-100.0); Monocytes # (auto) 0.2 10 ^3/uL (0-1.3); Monocytes % (auto) 1.5 % (0.0-12.0); Neutrophils # (auto) 8.5 10 ^3/uL (1.6-8.6); Neutrophils % (auto) 74.5 % (37.0-80.0); Nucleated Red Blood Cells % 0.2 %; White Blood Cell 11.4 10^3/uL (4.4-10.8)
[2022-10-20 04:41] LABS: Albumin 2.2 g/dL (3.4-5.0); Calcium 8.3 mg/dL (8.5-10.1); Potassium 4.2 mmol/L (3.5-5.1)
[2022-10-20 04:44] LABS: BUN/Creatinine Ratio 35.8 (10.0-20.0); Magnesium 2.3 mg/dL (1.6-2.6)
[2022-10-20 04:48] LABS: Bilirubin, Total 5.3 mg/dL (0.2-1.0); Phosphorus 6.2 mg/dL (2.5-4.90); Total Protein 4.3 g/dL (6.4-8.2)
[2022-10-20] MEDS: ACCU-CHEK COMFORT CURVE STRIP VI SCH ×3 (05:50→11:21)
[2022-10-20] MEDS: metroNIDAZOLE 500MG/100ML 100 ML IV SCH ×2 (05:51→11:24)
[2022-10-20] MEDS: InsuLIN REG 1unit/0.01ml Soln (100units/ml) SC SCH ×2 (05:56→11:20)
[2022-10-20] MEDS: METOCLOPRAMIDE HCL 5MG/ml INJ 2ml VIAL IV SCH ×2 (05:56→11:24)
[2022-10-20] MEDS ORDERED: SODIUM CHL 0.9% 1000 ML BAG XX ONE (08:45)
[2022-10-20] MEDS: BACITRACIN TOP OINT 1 UD PKG TOP SCH (08:52)
[2022-10-20] MEDS: DexAMETHasone SOD PHOS 4 MG/1ML SDV INJ IV SCH (08:52)
[2022-10-20] MEDS: D5W 5% IV SCH (08:52)
[2022-10-20] MEDS: TIGECYCLINE IV SCH (08:52)
[2022-10-20] MEDS ORDERED: PANTOPRAZOLE 40 MG/10 ML VIAL INJ IV SCH (10:00)
[2022-10-20] MEDS ORDERED: TPN PER PHARMACY IV NR ×10 (20:00)
== END 2022-10-20 14:30 | DRG 720 ==
LOC: ER 15:02 → EDBD 15:02 → OVERFLOW 19:05 → ICU WEST 10-09 00:12
PROVIDERS: ADMIT Nurse Practitioner Family; ATTEND Internal Medicine
PROC: 02HV33Z Insertion of Infusion Device into Superior Vena Cava, Percutaneous Approach (ICD-10-PCS; 2022-10-13)
PROC: 5A1D70Z Performance of Urinary Filtration, Intermittent, Less than 6 Hours Per Day (ICD-10-PCS; principal; 2022-10-14)
PROC: 5A1D70Z Performance of Urinary Filtration, Intermittent, Less than 6 Hours Per Day (ICD-10-PCS; 2022-10-17)
PROC: 02HV33Z Insertion of Infusion Device into Superior Vena Cava, Percutaneous Approach (ICD-10-PCS; 2022-10-19)
PROC: B548ZZA Ultrasonography of Superior Vena Cava, Guidance (ICD-10-PCS; 2022-10-19)
DX: A41.9 Sepsis, unspecified organism (principal); J96.01 Acute respiratory failure with hypoxia; N17.0 Acute kidney failure with tubular necrosis; R65.21 Severe sepsis with septic shock; E11.10 Type 2 diabetes mellitus with ketoacidosis without coma; D61.818 Other pancytopenia; G93.41 Metabolic encephalopathy; E43 Unspecified severe protein-calorie malnutrition; Z66 Do not resuscitate; J15.9 Unspecified bacterial pneumonia; I13.2 Hypertensive heart and chronic kidney disease with heart failure and with stage 5 chronic kidney disease, or end stage renal disease; I21.A1 Myocardial infarction type 2; K92.2 Gastrointestinal hemorrhage, unspecified; E88.09 Other disorders of plasma-protein metabolism, not elsewhere classified; I50.30 Unspecified diastolic (congestive) heart failure; E66.01 Morbid (severe) obesity due to excess calories; E87.1 Hypo-osmolality and hyponatremia; E87.5 Hyperkalemia; J98.11 Atelectasis; N30.90 Cystitis, unspecified without hematuria; E11.22 Type 2 diabetes mellitus with diabetic chronic kidney disease; N18.6 End stage renal disease; I43 Cardiomyopathy in diseases classified elsewhere; D64.9 Anemia, unspecified; K80.20 Calculus of gallbladder without cholecystitis without obstruction; Z99.2 Dependence on renal dialysis; Z79.4 Long term (current) use of insulin; Z68.37 Body mass index [BMI] 37.0-37.9, adult
CPT/HCPCS: 36415; 36556; 36600; 70450; 71045; 71250; 74176; 76705; 76775; 80048; 80053; 80074; 80076; 80202; 80307; 80320; 81001; 82010; 82043; 82140; 82306; 82550; 82570; 82607; 82784; 82805; 82962; 83036; 83516; 83540; 83550; 83605; 83735; 83880; 84100; 84156; 84300; 84443; 84478; 84484; 84550; 85007; 85025; 85027; 85301; 85610; 85652; 85730; 86038; 86141; 86225; 86235; 86256; 86334; 86431; 86592; 86850; 86900; 86901; 86920; 87040; 87070; 87076; 87077; 87081; 87086; 87186; 87205; 87340; 90935; 93005; 93306; 96365; 96367; 96375; 99291; C9113; G0378; J1100; J1642; J1815; J2248; J3465; J3480; J3490; J7060; J7131; P9047